=== PATIENT | female | born 1955 | race Two or more races ===

== ENCOUNTER 2024-11-14 17:28 | Emergency (ER) | payer MEDICARE, MEDICAID, SELFPAY ==
--- NOTE | 2024-11-14 18:22 | EKG_ITS ---
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
[2024-11-14 18:33] VITALS: BMI 53.4
--- NOTE | 2024-11-14 18:33 | PD.EDRME ---
Rapid Medical Screening Exam RME Arrival date/time: 11/14/24 17:28 Chief Complaint: General Adult/Misc Complain Time Seen by Provider: 11/14/24 18:24 RME Narrative: 69yo female with pmhx HTN presents to the ED for a chief complaint of elevated blood pressure since this morning. She endorses feeling anxious, dizzy, and having tremors. She states she did take her BP medications this morning. No falls or injuries.
[2024-11-14 18:34] VITALS: BP 162/105; PULSE 143; RESP 22; TEMP 36.7; O2SAT 98
--- NOTE | 2024-11-14 18:37 | XR_ITS ---
Examination: CT brain head without contrast. 2-D sagittal coronal reconstructions Date and time of exam:November 14, 2024 1846 hrs. Comparison July 10, 2024 Indications: Onset headaches with left-sided body weakness beginning 2 hours ago CTDI: vol (mGy):45 DLP: (mGycm):886 Technique: Multiple CT axial sections of the brain have been obtained, 5 mm slice thickness. Contrast has not been administered. 2-D sagittal, coronal reconstructions have been obtained Low dose protocols were performed. One or more of the following dose reduction techniques were used; automated exposure control, adjustment of the mA and/or KV according to patient size, use of iterative reconstruction technique. Findings: No significant ventricular enlargement. Intra-axial or extra-axial hemorrhage density is not seen. No mass effect or midline shift Basal cisterns are not remarkable. Fourth ventricle is midline. Cranial vault intact. Impression: Negative for acute hemorrhage, mass effect or midline shift As clinically warranted, brain MRI follow-up would best assess for acute ischemic change
[2024-11-14 19:17] LABS: Basophils % (Auto) 0 % (0-2.5); Eosinophils # (Auto) 0.1 Thou/mm3 (0.0-0.5); Eosinophils % (Auto) 1 % (0-10); Hematocrit 43.2 % (36.0-46.0); Hemoglobin 15.6 g/dL (12.0-16.0); Immature Granulocytes % (Auto) 0 % (0-0); Immature Granulocytes Auto 0.02 Thou/mm3 (0.00-0.00); Lymphocytes % (Auto) 38 % (10-50); Mean Corpuscular HGB Conc 36.1 g/dl (31.0-37.0); Mean Corpuscular Hemoglobin 32.8 pg (25.0-35.0); Mean Corpuscular Volume 91 fL (80-100); Monocytes # (Auto) 0.7 Thou/mm3 (0.0-0.8); Monocytes % (Auto) 7 % (0-12); Neutrophils # (Auto) 5.5 Thou/mm3 (1.8-7.7); Neutrophils % (Auto) 53 % (37-80); Nucleated Red Blood Cell % 0 /100 WBC (0); Platelet Count 256 Thou/mm3 (140-440); RDW Standard Deviation 39.7 fL (36.4-46.3); Red Blood Count 4.75 Miln/mm3 (4.00-5.20); White Blood Count 10.3 Thou/mm3 (3.6-11.0)
[2024-11-14 19:54] LABS: Alanine Aminotransferase 67 U/L (10-49); Albumin, Serum 5.3 gm/dL (3.4-4.8); Albumin/Globulin Ratio 1.7 (1.2-2.2); Alkaline Phosphatase 118 U/L (46-116); Anion Gap 14 (7-16); Aspartate Amino Transferase 43 U/L (0-34); BUN/Creatinine Ratio 13 Ratio (12-20); Bilirubin,Total 0.7 mg/dL (0.3-1.2); Blood Urea Nitrogen 12 mg/dL (9-23); Calcium 10.5 mg/dL (8.3-10.6); Calcium (Corrected) 10.5 mg/dL (8.5-10.1); Carbon Dioxide 21.8 mMol/L (20.0-31.0); Chloride 102 mMol/L (98-107); Creatinine (Component) 0.9 mg/dL (0.6-1.3); Estimated Creatinine Clearance 75.1 mL/min (>60); Globulin 3.1 gm/dL (2.3-3.5); Glucose 165 mg/dL (74-106); Osmolality,Calculated 279 (275-295); Potassium 3.5 mMol/L (3.4-5.1); Sodium 138 mMol/L (136-145); Total Protein 8.4 gm/dL (5.7-8.2); Troponin I < 0.020 ng/mL (0.0-0.045); eGFR > 60 See Note
--- NOTE | 2024-11-14 22:11 | EDNOTE_ITS ---
ED General RME/HPI General Chief complaint: General Adult/Misc Complain Stated complaint: HIGH BP @ 0800; HEADACHE Time Seen by Provider: 11/14/24 18:24 Arrival date/time: 11/14/24 17:28 RME / HPI RME / HPI narrative: 69yo female with pmhx HTN presents to the ED for a chief complaint of elevated blood pressure since this morning. She endorses feeling anxious, dizzy, and having tremors. She states she did take her BP medications this morning. No falls or injuries. Patient also complained of headache, described as dull ache, severity moderate. Denies any other complaints Related Data Home Medications ?Medication ?Instructions ?Recorded ?Confirmed omeprazole 20 mg tablet,delayed 40 mg PO QDAY ##56 12/01/16 07/09/24 release lisinopril 5 mg tablet 5 mg PO QDAY 04/15/19 07/09/24 metformin 850 mg tablet 850 mg PO DAILY diabetes 07/09/24 07/09/24 Previous Rx's ?Medication ?Instructions ?Recorded albuterol sulfate 90 mcg/actuation 2 puff inhalation Q6H PRN 04/24/22 aerosol inhaler shortness of breath or wheezing #8.5 grams meclizine 25 mg tablet 25 mg PO QDAY PRN dizziness #10 07/10/24 tabs amlodipine 5 mg tablet 5 mg PO QDAY #30 tabs 11/14/24 Allergies Allergy/AdvReac Type Severity Reaction Status Date / Time metoclopramide Allergy Severe PALPITATION Verified 11/14/24 17:33 S Review of Systems Review of Systems Narrative Review of Systems: Review of system reviewed and within normal limits except mentioned in HPI ED Exam Narrative Physical exam: VITAL SIGNS: Reviewed. GENERAL APPEARANCE: Alert and interactive, follows commands, no acute distress, HEAD AND FACE: Non-traumatic. ENT: PERRL, pink conjunctivitis, eyelid no trauma, Mucous membrane moist. NECK: Supple, nontender, no nuchal rigidity. CHEST: No tenderness, no crepitus, no paradoxical movement, no retractions. LUNGS: Clear, well ventilated, symmetric, no rales, no wheezing, no ronchi, no stridor, good breath sounds bilaterally. HEART: Regular rate, regular rhythm, no murmur, no gallops. ABDOMEN: Soft, positive bowel sounds, nondistended, no guarding, nontender, no rebound, no masses, RECTAL: Deferred. GENITAL: Deferred. NEUROLOGICAL: Gross motor function intact sensory function intact, Appropriate for age. MUSCULOSKELETAL: low back nontender, full range of motion. EXTREMITIES: Nontender, full range of motion. SKIN: Color pink, dry, no rash, no lacerations, no abrasions, no contusions. LYMPHATICS: Deferred. Course Quality Measures none Orders Category Date Time Status EKG (ED ONLY) *Do not use* NOW Care 11/14/24 18:[address] head/brain wo con Stat Exams 11/14/24 18:37 Completed EKG (ED Only) Stat Exams 11/14/24 18:22 Draft CBC Stat Lab 11/14/24 19:08 Completed CMP [Comprehensive Metabolic Panel] Stat Lab 11/14/24 19:08 Completed Troponin I Stat Lab 11/14/24 19:08 Completed Vital Signs Vital signs: Vital Signs Temperature 98.0 F 11/14/24 18:34 Pulse Rate 143 H 11/14/24 18:34 Respiratory Rate 22 H 11/14/24 18:34 Blood Pressure 162/105 H 11/14/24 18:34 Pulse Oximetry (%) 98 11/14/24 18:34 Oxygen Delivery Method Room Air 11/14/24 18:34 MDM Patient data External records reviewed:: None Clinical information provided by:: none Social determinants that could affect healthcare access:: none Patient has the following chronic illnesses:: Hypertension How is presenting disease/condition affected by chronic disease/condition?: e xacerbated by Evaluation data The following diagnostics were reviewed and interpreted by me:: lab results, radiology exam(s) and EKG tracing(s) Lab and/or radiology exams considered but not ordered:: None Interpretation Summary: CT scan of the head came back unremarkable. Laboratory workup all came back normal. EKG also came back sinus heart cardia, ventricular rate of 125 bpm, no ST segment elevation depression noted. Patient was noted to mid 70s. Medications Medications considered but not ordered:: Plan Medication administrations:: None Consultations Consultation(s) initiated? (list below): No Diagnosis Differential Diagnosis ED Complaint MDM: Hypertension, headache, dizziness, anxiety Most likely diagnosis given after review of the tests above:: Hypertension, headache, anxiety Admission Indicated Admission indicated?: not indicated Explain why admission is indicated or not indicated:: Stable Admission Request Was there a request for admission?: No Disposition Plan Disposition Plan: Discharge Discharge Attestation Discharge Attestation: The patient and all family members were given an opportunity to ask questions and understood the discharge instructions. Discharge instructions specifically effects, indications for sooner follow up or return to the emergency department, and the expected course of current diagnosis. Patient condition: Stable Medical Decision Making Differential Diagnosis Differential Diagnosis: Hypertension, headache, dizziness, anxiety Lab Data 11/14/24 19:08 11/14/24 19:08 Labs: Lab Results 11/14/24 Range/Units 19:08 WBC 10.3 (3.6-11.0) Thou/mm3 RBC 4.75 (4.00-5.20) Miln/mm3 Hgb 15.6 (12.0-16.0) g/dL Hct 43.2 (36.0-46.0) % MCV 91 (80-100) fL MCH 32.8 (25.0-35.0) pg MCHC 36.1 (31.0-37.0) g/dl RDW Std Deviation 39.7 (36.4-46.3) fL Plt Count 256 (140-440) Thou/mm3 Neut % (Auto) 53 (37-80) % Lymph % (Auto) 38 (10-50) % Ogle % (Auto) 7 (0-12) % Eos % (Auto) 1 (0-10) % Baso % (Auto) 0 (0-2.5) % Neut # (Auto) 5.5 (1.8-7.7) Thou/mm3 Lymph # (Auto) 4.0 (1.0-4.8) Thou/mm3 Ogle # (Auto) 0.7 (0.0-0.8) Thou/mm3 Eos # (Auto) 0.1 (0.0-0.5) Thou/mm3 Baso # (Auto) 0.0 (0.0-0.2) Thou/mm3 Immature Gran # (Auto) 0.02 H (0.00-0.00) Thou/mm3 Absolute Nucleated RBC 0.00 (0.00-0.00) Thou/mm3 Immature Gran % 0 (0-0) % Nucleated RBC % 0 (0) /100 WBC Sodium 138 (136-145) mMol/L Potassium 3.5 (3.4-5.1) mMol/L Chloride 102 (98-107) mMol/L Carbon Dioxide 21.8 (20.0-31.0) mMol/L Anion Gap 14 (7-16) BUN 12 (9-23) mg/dL Creatinine 0.9 (0.6-1.3) mg/dL Estim Creat Clear Calc 75.1 (>60) mL/min eGFR > 60 (60 - ) See Note BUN/Creatinine Ratio 13 (12-20) Ratio Glucose 165 H (74-106) mg/dL Calculated Osmolality 279 (275-295) Calcium 10.5 (8.3-10.6) mg/dL Corrected Calcium 10.5 H (8.5-10.1) mg/dL Total Bilirubin 0.7 (0.3-1.2) mg/dL AST 43 H (0-34) U/L ALT 67 H (10-49) U/L Alkaline Phosphatase 118 H (46-116) U/L Troponin I < 0.020 (0.0-0.045) ng/mL Total Protein 8.4 H (5.7-8.2) gm/dL Albumin 5.3 H (3.4-4.8) gm/dL Globulin 3.1 (2.3-3.5) gm/dL Albumin/Globulin Ratio 1.7 (1.2-2.2) Discharge Plan Plan Patient Disposition: HOME (Self Care) Disposition Comment: Stable Prescriptions/Referrals Prescriptions/Med Rec: New amlodipine 5 mg tablet 5 mg PO QDAY Qty: 30 0RF No Action omeprazole 20 MG tablet,delayed release (DR/EC) 40 mg PO QDAY Qty: 56 lisinopril 5 mg Tablet 5 mg PO QDAY albuterol sulfate 90 mcg/actuation HFA aerosol inhaler 2 puff inhalation Q6H PRN (Reason: shortness of breath or wheezing) Qty: 8.5 0RF meclizine 25 mg tablet 25 mg PO QDAY PRN (Reason: dizziness) Qty: 10 0RF metformin 850 mg tablet 850 mg PO DAILY Hold Instructions: follow up with pcp Patient Comments: take 1 tablet by mouth once daily Referrals: Pavan Martines [Primary Care Provider] - In 1 week Problem List Clinical Impression: Hypertension, Headache Patient/Caregiver Discharge Instructions Discharge Activity: activity as tolerated Education Materials: Hypertension Dc Additional Instructions: Thank you for the opportunity for serving you today. You are stable for discharged . You are advised to: Follow-up with your PCP in 1 to 2 days Return to ED for worsening of symptoms Increase oral fluids Take medication as prescribed Print Language: Ethiopian Stand Alone Forms: Nat Award Info., Patient Portal Info Letter PA/JOIE Supervising Physician MARIAH/JOIE Supervising Physician: MD Buzz
[2024-11-14 22:19] VITALS: BP 137/79; PULSE 76; RESP 18; TEMP 36.8; O2SAT 96
== END 2024-11-14 22:27 | disposition home or self-care (01) ==
PROVIDERS: Emergency Provider Emergency Medicine; PCP Physician Assistant
DX: I10 Essential (primary) hypertension (principal); R51.9 Headache, unspecified; R53.1 Weakness; R00.0 Tachycardia, unspecified
CPT/HCPCS: 36415; 70450; 80053; 81001; 84484; 85025; 93005; 99284

== ENCOUNTER → 2024-12-23 | Outpatient (CLI) | payer MEDICARE, MEDICAID, SELFPAY ==
--- NOTE | 2024-12-23 16:15 | XR_ITS ---
Examination: Retroperitoneal ultrasound, complete Technique: Multiple high resolution grayscale images of the retroperitoneum obtained, including kidneys and bladder. Exam date and time:December 23, 2024 1622 hours INDICATIONS: Chronic kidney disease stage II, elevated renal function tests on laboratory examination performed 2 weeks ago FINDINGS: Right kidney 9.5 x 4.5 x 3.9 cm cortex 1.8 cm Left kidney 10.8 x 4.7 x 4.0 cm in the cortex 1.5 cm Moderate bilateral renal parenchymal scar formation Mild left hydronephrosis No bladder mass or bladder calculi Bladder prevoid volume 315 cc, postvoid volume 0 cc IMPRESSION: Bilateral renal cortical thinning Moderate bilateral renal parenchymal scar formation Mild left hydronephrosis
== END | disposition home or self-care (01) ==
PROVIDERS: Referring Provider Internal Medicine Nephrology; Visit Provider Internal Medicine Nephrology
DX: N28.89 Other specified disorders of kidney and ureter (principal); N13.30 Unspecified hydronephrosis
CPT/HCPCS: 76770

== ENCOUNTER → 2025-02-07 | Outpatient (CLI) | payer MEDICARE, MEDICAID, SELFPAY ==
--- NOTE | 2025-02-07 15:30 | XR_ITS ---
Examination: CT abdomen with intravenous contrast CT pelvis with intravenous contrast 2-D coronal reconstructions 2-D sagittal reconstructions Date and time of exam:February 07, 2025 at 1547 hrs. Indications: Bilateral back and flank pain this week, renal sonogram January 23, 2025 mild kyphosis. CTDI: vol (mGy) 13.06 DLP: (mGycm) 158 Technique: Multiple axial sections of the abdomen and pelvis have been obtained. 64 slice high-resolution scanner used. 3 mm axial sections have been obtained, post intravenous injection 60 cc [id number] 2-D sagittal, coronal reconstructions obtained. Low dose protocols were performed. One or more of the following dose reduction techniques were used; automated exposure control, adjustment of the mA and/or KV according to patient size, use of iterative reconstruction technique. Findings: No focal liver or splenic lesions Contracted gallbladder No pancreatic or adrenal mass. No renal or ureteral calculi, no hydronephrosis Normal appendix Atrophic uterus No bladder mass or bladder calculi Advanced disc narrowing L5-S1 Impression: No renal or ureteral calculi, no hydronephrosis No bladder mass or bladder calculi Normal appendix
== END | disposition home or self-care (01) ==
LOC: CCTX 15:25
PROVIDERS: PCP Physician Assistant; Referring Provider Nurse Practitioner Family; Visit Provider Nurse Practitioner Family
DX: N13.30 Unspecified hydronephrosis (principal)
CPT/HCPCS: 74177; A4649; Q9967

== ENCOUNTER → 2025-06-19 | Outpatient (CLI) | payer MEDICARE, MEDICAID, SELFPAY ==
--- NOTE | 2025-06-19 15:56 | XR_ITS ---
Examination: Knee, right , 3 views Technique: Knee AP, lateral, oblique 3 views Date and time of exam: The 25 1604 hours INDICATIONS: Right knee pain beginning one month ago. FINDINGS: Moderate narrowing medial patellofemoral joints Prominent osteopenia No fracture Heavy meniscus calcification IMPRESSION: Moderate narrowing medial and patellofemoral joints
== END | disposition home or self-care (01) ==
PROVIDERS: PCP Family Medicine; Referring Provider Family Medicine; Visit Provider Family Medicine
DX: M25.861 Other specified joint disorders, right knee (principal)
CPT/HCPCS: 73562

== ENCOUNTER → 2025-08-08 | Outpatient (CLI) | payer MEDICARE, MEDICAID, SELFPAY ==
--- NOTE | 2025-08-08 13:20 | XR_ITS ---
Examination: Bone densitometry Date and time of exam:August 08, 2025, 1327 hours Postmenopausal, family history sister with osteoporosis Technique: Lumbar spine and hip total bone mineralization values of an calculated. Peak reference and age match control results have been displayed. Findings: Lumbar spine total bone mineralization is0.846 gm/cm2. This is 1.8 standard deviations below peak reference. This is 0.4 standard deviations above age-matched controls. Hip total bone mineralization is 0.723 gm/cm2 This is 1.8 standard deviations below peak reference. This is 0.2 standard deviations below age-matched controls Impression: There is osteopenia based on lumbar spine measurements. There is osteopenia based on hip measurements
== END | disposition home or self-care (01) ==
PROVIDERS: PCP Family Medicine; Referring Provider Family Medicine; Visit Provider Family Medicine
DX: M85.89 Other specified disorders of bone density and structure, multiple sites (principal)
CPT/HCPCS: 77080

== ENCOUNTER → 2025-09-30 | Outpatient (CLI) | payer MEDICARE, MEDICAID, SELFPAY ==
--- NOTE | 2025-09-30 13:45 | XR_ITS ---
Examination: Screening digital mammography, bilateral Computer aided detection 3-D breast Tomosynthesis, bilateral Date and time of exam: 09/30/2025, 1:41 p.m. Comparisons: 09/02/2024 Indications: Screening Technique: Nonmagnified MLO, CC views of the breasts to been obtained, reconstructed from 3-D Tomosynthesis images. R2 computer aided detection program utilized for evaluation of suspicious masses and/or abnormal calcifications. 3-D Tomosynthesis images obtained. Technologist: Findings: There are scattered areas of fibroglandular density. No evidence of abnormal masses or suspicious calcifications. Impression: BI-RADS category 1: Negative findings (within normal) Recommend 1 year follow-up mammogram
== END | disposition home or self-care (01) ==
LOC: CDIM 13:21
PROVIDERS: Referring Provider Family Medicine; Visit Provider Family Medicine
DX: Z12.31 Encounter for screening mammogram for malignant neoplasm of breast (principal); R92.313 Mammographic fatty tissue density, bilateral breasts
CPT/HCPCS: 77063; 77067

== ENCOUNTER → 2025-10-27 | Outpatient (CLI) | payer MEDICARE, MEDICAID, SELFPAY ==
--- NOTE | 2025-10-27 15:00 | XR_ITS ---
Examination: Abdomen sonogram, Limited Date and time of exam: October 27, 2025, 1550 hours INDICATIONS: Onset right upper abdominal pain beginning 2 days ago. Technique: Real-time bishop scale transabdominal sonographic images of the upper abdomen obtained. Findings: Contracted gallbladder no stones Gallbladder wall 0.3 cm Common bile duct 0.2 cm Pancreas obscured by bowel gas. Liver 14.4 cm mildly irregular contour fatty infiltration Normal hepatopetal portal venous flow Patent IVC IMPRESSION: Repeat the gallbladder portion of the study with fasting
== END | disposition home or self-care (01) ==
PROVIDERS: PCP Family Medicine; Referring Provider Family Medicine; Visit Provider Family Medicine
DX: R10.11 Right upper quadrant pain (principal)
CPT/HCPCS: 76705